=== PATIENT | male | born 1995 | race African-American/Black ===

== ENCOUNTER 2018-07-08 01:13 | Emergency (ER) | payer SELFPAY | END 2018-07-08 02:03 | disposition left against medical advice (07) | LOC: FTE 01:13 | DX: Z53.21 Procedure and treatment not carried out due to patient leaving prior to being seen by health care provider (principal) ==

== ENCOUNTER 2018-07-11 02:50 | Emergency (ER) | payer OTHER ==
[2018-07-11 15:36] LABS: RAPID PLASMA REAGIN REACTIVE (NR)
[2018-07-13 20:03] LABS: FLUORESCENT TREPONEMAL AB REACTIVE (NON-REACTIVE)
== END 2018-07-11 08:01 | disposition home or self-care (01) ==
LOC: FTE 02:50
DX: R29.810 Facial weakness (principal); R07.9 Chest pain, unspecified; Z21 Asymptomatic human immunodeficiency virus [HIV] infection status
CPT/HCPCS: 36415; 86592; 93005; 99283-25